=== PATIENT | female | born 1990 | race Caucasian/White ===

== ENCOUNTER 2018-09-04 03:54 | Emergency (ER) | payer SELFPAY ==
[2018-09-04] MEDS ORDERED: NS(*) 0.9% 1000 ML BAG 1,000 ML IV ONE (03:58)
--- NOTE | 2018-09-04 03:58 | ER Report ---
History and Physical Time Seen By MD: 03:57 HPI/ROS CHIEF COMPLAINT: Gallbladder attack HISTORY OF PRESENT ILLNESS: 27-year-old female with a known history of gallstones diagnosed 4-5 months ago by ultrasound, has no insurance was unable to have a lap scopic, cholecystectomy. Tonight she notes sudden onset of severe pain and right upper quadrant radiating to her back. She has nausea and vomiting. He notes no fever or chills. REVIEW OF SYSTEMS: Respiratory: No cough, no dyspnea. Cardiovascular: No chest pain, no palpitations. Gastrointestinal: As above Musculoskeletal: No back pain. Allergies: Coded Allergies: No Known Drug Allergies (Unverified , 09/04/18) Home Meds Active Scripts Promethazine Hcl (PROMETHAZINE HCL) 25 Mg Tablet, 25 MG PO Q4H PRN for NAUSEA/VOMITING, #12 TAB Prov:DANNI MADISON DO 09/04/18 Hydrocodone Bit/Acetaminophen (HYDROCODON-ACETAMINOPHEN 5-325) 1 Each Tablet, 1 EACH PO Q4-6H PRN for PAIN, #12 TAKE ONE TABLET BY MOUTH EVERY 4-6 HOURS NEEDED FOR PAIN Prov:DANNI MADISON DO 09/04/18 Reported Medications Multivitamin With Minerals (MULTIPLE VITAMIN) 1 Each Tablet, 1 EACH PO DAILY, TAB 09/04/18 Vit B Comp/C/Fa/Iron/Vit E (VITAMIN B COMPLEX TABLET) 1 Each Tablet, 2 EACH PO DAILY 09/04/18 Past Medical/Surgical History Gallstones Reviewed Nurses Notes: Yes Old Medical Records Reviewed: Yes Constitutional Vital Sign - Last 24 Hours 09/04/18 09/04/18 09/04/18 09/04/18 04:02 04:04 04:15 04:30 Temp 98.7 Pulse 98 94 91 Resp 22 B/P (MAP) 111/98 (102) 111/98 98/68 (78) Pulse Ox 97 95 90 O2 Delivery Room Air 09/04/18 09/04/18 09/04/18 04:45 05:00 05:15 Pulse 101 81 84 B/P (MAP) 94/72 (79) Pulse Ox 96 95 92 Physical Exam General Appearance: The patient is alert, has no immediate need for airway protection and no current signs of toxicity. Moderate distress, vital signs stable, afebrile, pulse ox normal Eyes: Pupils equal and round no injection. Anicteric sclera Respiratory: Chest is non tender, lungs are clear to auscultation. Cardiac: regular rate and rhythm Gastrointestinal: Abdomen is soft, moderate right upper quadrant tenderness, positive Marie sign no masses, bowel sounds normal. Musculoskeletal: Neck: Neck is supple and non tender. Extremities have full range of motion and are non tender. Skin: No rashes or lesions. DIFFERENTIAL DIAGNOSIS: After history and physical exam differential diagnosis was considered for abdominal pain including but not limited to appendicitis, cholecystitis, gastritis and urinary tract infection. Medical Decision Making Data Points Result Diagram: 09/04/18 0415 09/04/18 0415 Laboratory Hematology Test 09/04/18 04:00 09/04/18 04:15 Urine Color Yellow Urine Clarity Cloudy Urine pH 6.0 pH (4.8-9.5) Urine Specific Start 1.029 Urine Protein Negative mg/dL (NEGATIVE) Urine Glucose (UA) Negative mg/dL (NEGATIVE) Urine Ketones Trace mg/dL (NEGATIVE) Urine Blood Moderate (NEGATIVE) Urine Nitrite Negative (NEGATIVE) Urine Bilirubin Negative (NEGATIVE) Urine Urobilinogen 0.2 mg/dL (0.2-1.9) Urine Leukocyte Esterase Moderate (NEGATIVE) Urine RBC 27 /HPF (0-2/HPF) Urine WBC 12 /HPF (0-5/HPF) Urine Squamous Epithelial Cells Many /LPF (</=FEW) Urine Transitional Epithelial Cells Few /LPF (NONE-FEW) Urine Bacteria Few /HPF (NONE-FEW) Urine Hyaline Casts Few /LPF (NONE-FEW) Urine Mucus Few /HPF (NONE-FEW) Urine HCG, Qualitative Negative (NEGATIVE) Red Blood Count 4.77 M/uL (4.17-5.56) Mean Corpuscular Volume 91.0 fL (80.0-96.0) Mean Corpuscular Hemoglobin 31.3 pg (26.0-33.0) Mean Corpuscular Hemoglobin Concent 34.4 g/dL (32.0-36.0) Red Cell Distribution Width 13.0 % (11.5-14.5) Mean Platelet Volume 8.9 fL (7.2-11.1) Neutrophils (%) (Auto) 65.1 % (39.4-72.5) Lymphocytes (%) (Auto) 27.0 % (17.6-49.6) Monocytes (%) (Auto) 6.4 % (4.1-12.4) Eosinophils (%) (Auto) 0.9 % (0.4-6.7) Basophils (%) (Auto) 0.6 % (0.3-1.4) Nucleated RBC Relative Count (auto) 0.0 /100WBC Neutrophils # (Auto) 8.1 K/uL (2.0-7.4) Lymphocytes # (Auto) 3.4 K/uL (1.3-3.6) Monocytes # (Auto) 0.8 K/uL (0.3-1.0) Eosinophils # (Auto) 0.1 K/uL (0.0-0.5) Basophils # (Auto) 0.1 K/uL (0.0-0.1) Nucleated RBC Absolute Count (auto) 0.00 K/uL Sodium Level 134 mmol/L (137-145) Potassium Level 4.4 mmol/L (3.5-5.0) Chloride Level 103 mmol/L (98-107) Carbon Dioxide Level 23 mmol/L (22-31) Blood Urea Nitrogen 15 mg/dl (7-18) Creatinine 0.50 mg/dl (0.52-1.04) Glomerular Filtration Rate Calc > 60.0 Random Glucose 95 mg/dl (75-110) Calcium Level 9.2 mg/dl (8.4-10.2) Total Bilirubin 0.2 mg/dl (0.2-1.3) Aspartate Amino Transf (AST/SGOT) 46 U/L (0-35) Alanine Aminotransferase (ALT/SGPT) 72 U/L (0-56) Alkaline Phosphatase 70 U/L (0-126) Total Protein 7.4 g/dl (6.3-8.2) Albumin 4.2 g/dl (3.5-5.0) Amylase Level 110 U/L (0-110) Lipase 153 U/L (23-300) Chemistry Test 09/04/18 04:00 09/04/18 04:15 Urine Color Yellow Urine Clarity Cloudy Urine pH 6.0 pH (4.8-9.5) Urine Specific Start 1.029 Urine Protein Negative mg/dL (NEGATIVE) Urine Glucose (UA) Negative mg/dL (NEGATIVE) Urine Ketones Trace mg/dL (NEGATIVE) Urine Blood Moderate (NEGATIVE) Urine Nitrite Negative (NEGATIVE) Urine Bilirubin Negative (NEGATIVE) Urine Urobilinogen 0.2 mg/dL (0.2-1.9) Urine Leukocyte Esterase Moderate (NEGATIVE) Urine RBC 27 /HPF (0-2/HPF) Urine WBC 12 /HPF (0-5/HPF) Urine Squamous Epithelial Cells Many /LPF (</=FEW) Urine Transitional Epithelial Cells Few /LPF (NONE-FEW) Urine Bacteria Few /HPF (NONE-FEW) Urine Hyaline Casts Few /LPF (NONE-FEW) Urine Mucus Few /HPF (NONE-FEW) Urine HCG, Qualitative Negative (NEGATIVE) White Blood Count 12.5 k/uL (4.5-11.0) Red Blood Count 4.77 M/uL (4.17-5.56) Hemoglobin 14.9 g/dL (12.0-16.0) Hematocrit 43.4 % (34.0-47.0) Mean Corpuscular Volume 91.0 fL (80.0-96.0) Mean Corpuscular Hemoglobin 31.3 pg (26.0-33.0) Mean Corpuscular Hemoglobin Concent 34.4 g/dL (32.0-36.0) Red Cell Distribution Width 13.0 % (11.5-14.5) Platelet Count 272 K/uL (150-450) Mean Platelet Volume 8.9 fL (7.2-11.1) Neutrophils (%) (Auto) 65.1 % (39.4-72.5) Lymphocytes (%) (Auto) 27.0 % (17.6-49.6) Monocytes (%) (Auto) 6.4 % (4.1-12.4) Eosinophils (%) (Auto) 0.9 % (0.4-6.7) Basophils (%) (Auto) 0.6 % (0.3-1.4) Nucleated RBC Relative Count (auto) 0.0 /100WBC Neutrophils # (Auto) 8.1 K/uL (2.0-7.4) Lymphocytes # (Auto) 3.4 K/uL (1.3-3.6) Monocytes # (Auto) 0.8 K/uL (0.3-1.0) Eosinophils # (Auto) 0.1 K/uL (0.0-0.5) Basophils # (Auto) 0.1 K/uL (0.0-0.1) Nucleated RBC Absolute Count (auto) 0.00 K/uL Glomerular Filtration Rate Calc > 60.0 Calcium Level 9.2 mg/dl (8.4-10.2) Total Bilirubin 0.2 mg/dl (0.2-1.3) Aspartate Amino Transf (AST/SGOT) 46 U/L (0-35) Alanine Aminotransferase (ALT/SGPT) 72 U/L (0-56) Alkaline Phosphatase 70 U/L (0-126) Total Protein 7.4 g/dl (6.3-8.2) Albumin 4.2 g/dl (3.5-5.0) Amylase Level 110 U/L (0-110) Lipase 153 U/L (23-300) Urinalysis Test 09/04/18 04:00 Urine Color Yellow Urine Clarity Cloudy Urine pH 6.0 pH (4.8-9.5) Urine Specific Start 1.029 Urine Protein Negative mg/dL (NEGATIVE) Urine Glucose (UA) Negative mg/dL (NEGATIVE) Urine Ketones Trace mg/dL (NEGATIVE) Urine Blood Moderate (NEGATIVE) Urine Nitrite Negative (NEGATIVE) Urine Bilirubin Negative (NEGATIVE) Urine Urobilinogen 0.2 mg/dL (0.2-1.9) Urine Leukocyte Esterase Moderate (NEGATIVE) Urine RBC 27 /HPF (0-2/HPF) Urine WBC 12 /HPF (0-5/HPF) Urine Squamous Epithelial Cells Many /LPF (</=FEW) Urine Transitional Epithelial Cells Few /LPF (NONE-FEW) Urine Bacteria Few /HPF (NONE-FEW) Urine Hyaline Casts Few /LPF (NONE-FEW) Urine Mucus Few /HPF (NONE-FEW) Urine HCG, Qualitative Negative (NEGATIVE) ED Course/Re-evaluation Clinical Indication for ER IV: Hydration, IV Access ED Course Patient was admitted to an examination room. H&P was done. The differential diagnoses was considered. Patient with acute gallbladder attack likely with a known history of gallstones. She unfortunately doesn't have insurance and is unable to give a cholecystectomy performed by surgeons in [place] or [place]. Patient's not been seen by general surgery here. Patient was treated with IV fluid hydration, Zofran, Toradol and Dilaudid. She feels much better. Her lavatory studies are mostly unremarkable except for mildly elevated LFTs. I see no indication for further diagnostic studies. I did talk about repeating ultrasound or CAT scan to assess her status. Patient was reluctant to do that without insurance. Patient be discharged home, advised clear liquid diet and avoidance of fatty or greasy food. She is given prescription for Lortab and Phenergan. She is advised to follow-up with general surgery in town here for further treatment. Decision to Disposition Date: September 04, 2018 Decision to Disposition Time: 05:24 Depart Departure Latest Vital Signs Vital Signs Date Time Temp Pulse Resp B/P (MAP) Pulse Ox O2 Delivery O2 Flow Rate FiO2 09/04/18 05:15 84 92 09/04/18 05:00 94/72 (79) 09/04/18 04:04 98.7 22 Room Air Impression: Primary Impression: RUQ abdominal pain Additional Impression: Hx of gallstones Condition: Improved Disposition: HOME OR SELF-CARE Referrals: HERNAN WELLER JOHN A MD New Scripts Promethazine Hcl (PROMETHAZINE HCL) 25 Mg Tablet 25 MG PO Q4H PRN for NAUSEA/VOMITING, #12 TAB Prov: DANNI MADISON DO 09/04/18 Hydrocodone Bit/Acetaminophen (HYDROCODON-ACETAMINOPHEN 5-325) 1 Each Tablet 1 EACH PO Q4-6H PRN for PAIN, #12 TAKE ONE TABLET BY MOUTH EVERY 4-6 HOURS NEEDED FOR PAIN Prov: DANNI MADISON DO 09/04/18 Patient Instructions: Abdominal Pain (ED), Clear Liquid Diet (ED) Additional Instructions: Follow clear liquid diet for 24-48 hours Avoid fatty food or greasy food to prevent future gallbladder attacks Follow-up with general surgery Problem Qualifiers DANNI MADISON DO September 04, 2018 03:58
[2018-09-04] MEDS ORDERED: MULT-1335 PO (04:04)
[2018-09-04] MEDS ORDERED: VIT-22 PO (04:04)
[2018-09-04] MEDS ORDERED: HYDROMORPHONE HCL 1 MG/ML SYRINGE IVP ONE (04:05)
[2018-09-04] MEDS ORDERED: ONDANSETRON 4 MG/2 ML VIAL IVP ONE (04:05)
[2018-09-04] MEDS ORDERED: PROMETHAZINE 25 MG/ML 1 ML AMP IVP ONE (04:05)
[2018-09-04 04:21] LABS: PLATELET COUNT, AUTOMATED 272 K/uL (150-450)
[2018-09-04] MEDS ORDERED: KETOROLAC 30 MG/ML VIAL IVP ONE (04:50)
[2018-09-04 05:00] VITALS: BP 94/72
[2018-09-04] MEDS ORDERED: ACET/HYDROC 5/325MG TH ER ONLY 2 TAB/BOTTLE PO ONE (05:25)
[2018-09-04] MEDS ORDERED: PROMETHAZINE HCL 25 MG TAB TH 2 TAB/BOTTLE PO ONE (05:25)
[2018-09-04] MEDS ORDERED: PROM-110 PO (05:26)
[2018-09-04] MEDS ORDERED: LOR5/325 PO (05:26)
== END 2018-09-04 05:40 | disposition home or self-care (01) ==
LOC: ER 03:58
DX: R10.11 Right upper quadrant pain (principal)
CPT/HCPCS: 81001; 81025; 82150; 83690; 85025; 96361; 96374; 96375; 99284; J1170; J1885; J2405; J2550; J7030; 82040; 82247; 82310; 82374; 82435; 82565; 82947; 84075; 84132; 84155; 84295; 84450; 84460; 84520

== ENCOUNTER 2018-10-07 01:31 | Observation (INO) | payer SELFPAY ==
[2018-10-07] VITALS (10 sets, daily range): BP systolic 98–127; BP diastolic 62–85
[~2018-10-07] VITALS: Ht 152.4 cm; Wt 68.5 kg
[~2018-10-07 01:31] MED LIST: LOR5/325 PO; MULT-1335 PO; PROM-110 PO; VIT-22 PO
[2018-10-07] MEDS ORDERED: INDOCYANINE GREEN 25 MG VIAL IVP ONE (07:30)
[2018-10-07] MEDS: NORMOSOL R SOLN(*) 1000 ML BAG 1,000 ML IV PRN ×2 (08:49→12:45)
[2018-10-07] MEDS ORDERED: ONDANSETRON 4 MG/2 ML VIAL ONE ×2 (09:08→09:09)
[2018-10-07] MEDS ORDERED: LIDOCAINE MPF 1% 5 ML VIAL ONE (09:09)
[2018-10-07] MEDS ORDERED: PROPOFOL EMUL(*) 10MG/ML 20 ML 20 ML ONE (09:09)
[2018-10-07] MEDS ORDERED: SUGAMMADEX SOD 200 MG/2 ML SDV ONE ×2 (09:09→11:49)
[2018-10-07] MEDS ORDERED: DEXAMETHASONE SOD 4 MG/ML VIAL ONE (09:09)
[2018-10-07] MEDS ORDERED: fentaNYL CITR 250 MCG/5 ML AMP ONE (09:10)
[2018-10-07] MEDS ORDERED: ROCURONIUM BR 10 MG/ML 5 ML SY 5 ML ONE (09:10)
[2018-10-07] MEDS ORDERED: KETAMINE HCL 200 MG/20 ML MDV ONE (09:14)
[2018-10-07] MEDS ORDERED: KETAMINE HCL-NS 50 MG/5 ML SYR ONE (09:14)
[2018-10-07] MEDS ORDERED: FAMOTIDINE 20 MG TAB PO ONE (09:45)
[2018-10-07] MEDS ORDERED: ceFAZolin(*) 2GM/D5W 50ML 50 ML IVPB ONE (09:45)
[2018-10-07] MEDS ORDERED: LIDOCAINE/SOD BICARB 8.4% SYR ID ONE (09:45)
[2018-10-07] MEDS ORDERED: MIDAZOLAM 2 MG/2 ML VIAL IVP PRN (09:45)
[2018-10-07] MEDS ORDERED: BUPIVACAINE/EPI 0.5% 50ML VIAL INFIL ONE (10:36)
[2018-10-07] MEDS ORDERED: fentaNYL CITR 100 MCG/2 ML AMP ONE ×2 (12:26→13:30)
--- NOTE | 2018-10-07 12:27 | Post Operative Progress Note ---
Post Operative Progress Note Date: Oct 07, 2018 Time: 12:20 Surgeon: dr. randall castro #[id number] Supervisor Screen Making: none Anesthesia: gen, local dr. shetty Pre-Op Diagnosis: acute and chronic cholecystitis Post-Op Diagnosis: same Procedure(s): robotic cholecystectomy Specimen Removed:(May be N/A): gallbladder Complications: none Estimated Blood Loss: minimal Date OP Note Dictated: Oct 07, 2018 Time OP Note Dictated: 12:21 HERNAN CASTRO Oct 07, 2018 12:27
--- NOTE | 2018-10-07 12:55 | OPERATIVE REPORT 1 ---
EVENT DATE: October 07, 2018 SURGEON: Dakota Griffin MD ANESTHESIOLOGIST: Colby Bearden MD ANESTHESIA: General and local. DRY PRESS OPERATOR HELPER: None. PREOPERATIVE DIAGNOSIS Acute and chronic cholecystitis. POSTOPERATIVE DIAGNOSIS Acute and chronic cholecystitis. PROCEDURE PERFORMED Robotic cholecystectomy. FLUIDS IV crystalloids. ESTIMATED BLOOD LOSS Minimal. SPECIMENS Gallbladder. COMPLICATIONS None. INDICATIONS This is a 27-year old female with several months' history of right upper quadrant pain. On physical exam, patient was stable. Her abdomen was soft. Imaging in the past has shown cholelithiasis. Patient presented earlier this morning to the emergency department with acute cholecystitis. Risks and benefits of the procedure were explained and consent was signed. PROCEDURE The patient was taken to the operating room and placed in the supine position. General anesthesia was administered per the Anesthesia team. Patient was prepped and draped in normal sterile fashion. Local analgesia was injected into the dermis above the umbilicus and a small incision was made. The umbilical stump was grasped and elevated. Veress needle was inserted. Pneumoperitoneum was achieved. Veress needle was removed. The 8 mm port was advanced. I confirmed we were in the appropriate space and I then advanced the 12 mm port through the supraumbilical incision. After injecting local analgesia and under direct vision, an 8 mm right sided port and two 8 mm left sided ports were placed. I inspected the abdomen. There was no injury upon entry. The robot was docked. The fungus was grasped and retracted superiorly and laterally. The infundibulum was grasped and retracted. Electrocautery was used to free the cystic duct, the cystic artery and surrounding tissue. Both structures were seen going directly to the gallbladder. Three clips were placed on the cystic artery and divided sharply between the distal two clips. Three clips were placed on the cystic duct and it was divided sharply between the distal two clips. The gallbladder was taken off the liver bed with electrocautery. It was removed with Endo Catch bag through the large port site. The right upper quadrant was inspected. Hemostasis was assured. Clips were confirmed to be in place. There was no spillage from the gallbladder. The robot was undocked. The Endo Catch bag with the gallbladder was removed. Fascia closure device with 0 Vicryl stitch was used to close the fascia of the large port site. Other ports were removed under direct vision. Hemostasis was assured. Final port was removed after pneumoperitoneum was released. All skin incisions were closed with 4-0 Monocryl subcuticular stitches. More local analgesia was injected. Appropriate dressings were applied. The patient tolerated the procedure well and there were no complications. JENN
[2018-10-07] MEDS ORDERED: ePHEDrine 25 MG/5 ML DISP.SYR IVP ONE (12:57)
[2018-10-07] MEDS ORDERED: ACETAMINOPHEN(*)1000 MG/100 ML 100 ML IVPB ONE (14:15)
[2018-10-07] MEDS ORDERED: KETOROLAC 30 MG/ML VIAL ONE (14:16)
[2018-10-07] MEDS ORDERED: HYDROmorphone HCL 2 MG/ML SDV ONE (15:34)
[2018-10-07] MEDS ORDERED: ONDANSETRON 4 MG/2 ML VIAL IVP PRN (15:50)
[2018-10-07] MEDS: HYDROmorphone HCL 2 MG/ML SDV IVP PRN (15:55)
[2018-10-07] MEDS: APAP/HYDROCODONE 325/7.5 TAB PO PRN ×2 (17:31→23:09)
[2018-10-07] MEDS: NS(*) 0.9% 1000 ML BAG 1,000 ML IV SCH (20:02)
[2018-10-08 03:24] VITALS: BP 105/55
[2018-10-08] MEDS: APAP/HYDROCODONE 325/7.5 TAB PO PRN ×2 (03:35→12:31)
[2018-10-08] MEDS: NS(*) 0.9% 1000 ML BAG 1,000 ML IV SCH (04:30)
[2018-10-08] MEDS ORDERED: TRAM-420 PO (06:36)
--- NOTE | 2018-10-08 07:43 | General Surgery Progress Note ---
Subjective Progress Notes Subjective no acute events Physical Exam Vital Signs Date Time Temp Pulse Resp B/P (MAP) Pulse Ox O2 Delivery O2 Flow Rate FiO2 10/08/18 03:44 93 10/08/18 03:24 98.5 16 105/55 (72) Room Air 10/07/18 18:42 65 10/07/18 17:30 1.0 Intake and Output 10/08/18 07:01 Intake Total 6210 ml Balance 6210 ml Intake Oral 360 ml IV Total 3950 ml Other 1900 ml # Voids 1 General Appearance: No Acute Distress Cardiovascular: Other (reg rate) GI: Other (abd soft) Assessment and Plan Problems: (1) Hx of gallstones Status: Acute Assessment & Plan: doing fine. adat. ambulate. home today. Exam Sepsis Risk: No Definite Risk HERNAN WELLER Oct 08, 2018 07:43
[2018-10-08] MEDS: HYDROmorphone HCL 2 MG/ML SDV IVP PRN (08:33)
[2018-10-08] MEDS ORDERED: ENOXAPARIN 40 MG/0.4ML SYR SC SCH (09:00)
[2018-10-08 09:26] VITALS: BP 101/62
[2018-10-08 11:58] VITALS: Ht 152.4 cm; Wt 68.5 kg
[2018-10-08 12:26] VITALS: BP 105/68
--- NOTE | 2018-10-08 13:42 | Hospitalist Depart ---
Discharge Summary Reason for Hosp/Final Diag: (1) Hx of gallstones Status: Acute Hospital Course & Plan: doing fine. adat. ambulate. home today. Departure Weight (Pounds): 151 Condition: Improved Discharge: Home Discharge Instructions Home Meds Active Scripts Tramadol Hcl (TRAMADOL HCL) 50 Mg Tablet, 50 MG PO Q6H PRN for PAIN, #20 TAB Prov:HERNAN CASTRO 10/08/18 Reported Medications Multivitamin With Minerals (MULTIPLE VITAMIN) 1 Each Tablet, 1 EACH PO DAILY, TAB 09/04/18 Vit B Comp/C/Fa/Iron/Vit E (VITAMIN B COMPLEX TABLET) 1 Each Tablet, 2 EACH PO DAILY 09/04/18 Discontinued Scripts Hydrocodone Bit/Acetaminophen (HYDROCODON-ACETAMINOPHEN 5-325) 1 Each Tablet, 1 EACH PO Q4-6H PRN for PAIN, #12 TAKE ONE TABLET BY MOUTH EVERY 4-6 HOURS NEEDED FOR PAIN Prov:DANNI MADISON DO 09/04/18 Diet: Regular Activity: No Heavy Lifting Special Instructions: no lifting more than 15 lbs for 3 wks. ok to shower. take stool softener while taking pain meds. f/u dr. randall castro in 2 wks ([phone]). Venous Thromboembolism Antithrombotics Is Pt On Any Antithrombotics?: Yes HERNAN CASTRO Oct 08, 2018 13:42
== END 2018-10-08 15:40 | disposition home or self-care (01) ==
LOC: OR 01:31 → INTOOBSV 17:16 → MED 17:16
PROVIDERS: ADMIT Surgery; ATTEND Surgery
DX: K81.0 Acute cholecystitis (principal)
CPT/HCPCS: 47562; 84703; 88304; 96372; G0378; J0131; J1100; J1170; J1650; J1885; J2001; J2250; J2405; J2704; J3010; J3490; J7030; S2900

== ENCOUNTER 2018-10-07 04:57 | Emergency (ER) | payer SELFPAY ==
--- NOTE | 2018-10-07 05:14 | ER Report ---
History and Physical Time Seen By MD: 05:12 Hx. of Stated Complaint: PT SCHEDULED TO HAVE GALLBLADDER REMOVED AT 09:00 TODAY. PT REPORTS INTENSE RUQ PAIN AND IS UNABLE TO CONTROL PAIN AT HOME. HPI/ROS CHIEF COMPLAINT: gallbladder attack pain HISTORY OF PRESENT ILLNESS: This is a 27 year old female. Has been having right upper and epigastric area pain, scheduled to have her gallbladder removed today, and was to come in about 0900 today. Tonight with severe pain and nausea that was not relieving, so came to the ER to get some help. She is in tears because of the pain. No shortness of breath or chest pain. Pain does radiate to right upper back. No trouble with urination or bowels. No fevers. Allergies: Coded Allergies: No Known Drug Allergies (Unverified , 10/07/18) Home Meds Active Scripts Tramadol Hcl (TRAMADOL HCL) 50 Mg Tablet, 50 MG PO Q6H PRN for PAIN, #20 TAB Prov:HERNAN GRIFFIN 10/08/18 Reported Medications Multivitamin With Minerals (MULTIPLE VITAMIN) 1 Each Tablet, 1 EACH PO DAILY, TAB 09/04/18 Vit B Comp/C/Fa/Iron/Vit E (VITAMIN B COMPLEX TABLET) 1 Each Tablet, 2 EACH PO DAILY 09/04/18 Discontinued Scripts Hydrocodone Bit/Acetaminophen (HYDROCODON-ACETAMINOPHEN 5-325) 1 Each Tablet, 1 EACH PO Q4-6H PRN for PAIN, #12 TAKE ONE TABLET BY MOUTH EVERY 4-6 HOURS NEEDED FOR PAIN Prov:DANNI MADISON DO 09/04/18 Reviewed Nurses Notes: Yes Hx Smoking: No Hx Substance Use Disorder: No Hx Alcohol Use: Yes Constitutional Vital Sign - Last 24 Hours 10/07/18 10/07/18 10/07/18 10/07/18 05:02 05:02 05:12 05:27 Temp 97.9 Pulse 75 72 81 Resp 22 B/P (MAP) 109/74 109/74 (86) Pulse Ox 97 98 91 O2 Delivery Room Air 10/07/18 10/07/18 10/07/18 10/07/18 05:30 05:32 05:35 05:55 Pulse 70 66 B/P (MAP) 97/67 (77) Pulse Ox 90 97 O2 Flow Rate 1.0 10/07/18 10/07/18 10/07/1810/07/19 06:00 06:15 06:30 06:35 Pulse 78 69 Resp 20 17 B/P (MAP) 95/61 (72) 93/60 (71) Pulse Ox 99 99 10/07/18 10/07/18 10/07/18 10/07/18 06:55 07:00 07:05 07:25 Pulse 66 95 81 Resp 12 14 13 B/P (MAP) 83/63 (70) Pulse Ox 99 100 99 10/07/18 10/07/18 10/07/18 10/07/18 07:30 07:45 08:00 08:05 Pulse 63 63 Resp 14 13 B/P (MAP) 93/68 (76) 101/64 (76) Pulse Ox 99 99 10/07/18 08:25 Pulse 67 Resp 26 Pulse Ox 97 Physical Exam General Appearance: The patient is alert. Acute distress due to pain. Eyes: Pupils are equal, round. No pallor, injection or icterus. ENT: Mucous membranes are moist. Neck: Supple and non tender. Respiratory: Lungs are clear to auscultation. Cardiovascular: Initially tachycardic, but now regular rate and rhythm after pain management. No murmurs, gallops or rubs. Gastrointestinal: Abdomen is tender in right upper quadrant and the epigastric area. Nondistended. Guarding, but no rebound. Normal active bowel sounds. Has some tenderness right flank. Neurological: Alert and oriented x3. Skin: Warm and dry. Musculoskeletal: Extremities are nontender. DIFFERENTIAL DIAGNOSIS: After history and physical exam, differential diagnosis was considered for right upper quadrant pain, suspect gallbladder as cause, but will look at labs for other causes and complications. Medical Decision Making Data Points Result Diagram: 10/07/18 0515 10/07/18 0515 Laboratory Hematology Test 10/07/18 05:15 Red Blood Count 4.61 M/uL (4.17-5.56) Mean Corpuscular Volume 90.5 fL (80.0-96.0) Mean Corpuscular Hemoglobin 32.2 pg (26.0-33.0) Mean Corpuscular Hemoglobin Concent 35.5 g/dL (32.0-36.0) Red Cell Distribution Width 13.3 % (11.5-14.5) Mean Platelet Volume 9.1 fL (7.2-11.1) Neutrophils (%) (Auto) 59.2 % (39.4-72.5) Lymphocytes (%) (Auto) 33.7 % (17.6-49.6) Monocytes (%) (Auto) 5.7 % (4.1-12.4) Eosinophils (%) (Auto) 1.3 % (0.4-6.7) Basophils (%) (Auto) 0.1 % (0.3-1.4) Nucleated RBC Relative Count (auto) 0.0 /100WBC Neutrophils # (Auto) 5.0 K/uL (2.0-7.4) Lymphocytes # (Auto) 2.8 K/uL (1.3-3.6) Monocytes # (Auto) 0.5 K/uL (0.3-1.0) Eosinophils # (Auto) 0.1 K/uL (0.0-0.5) Basophils # (Auto) 0.0 K/uL (0.0-0.1) Nucleated RBC Absolute Count (auto) 0.00 K/uL Sodium Level 137 mmol/L (137-145) Potassium Level 3.2 mmol/L (3.5-5.0) Chloride Level 105 mmol/L (98-107) Carbon Dioxide Level 21 mmol/L (22-31) Blood Urea Nitrogen 8 mg/dl (7-18) Creatinine 0.50 mg/dl (0.52-1.04) Glomerular Filtration Rate Calc > 60.0 Random Glucose 95 mg/dl (75-110) Calcium Level 9.5 mg/dl (8.4-10.2) Total Bilirubin 0.4 mg/dl (0.2-1.3) Aspartate Amino Transf (AST/SGOT) 22 U/L (0-35) Alanine Aminotransferase (ALT/SGPT) 37 U/L (0-56) Alkaline Phosphatase 85 U/L (0-126) Total Protein 7.9 g/dl (6.3-8.2) Albumin 4.6 g/dl (3.5-5.0) Amylase Level 89 U/L (0-110) Lipase 167 U/L (23-300) Chemistry Test 10/07/18 05:15 White Blood Count 8.4 k/uL (4.5-11.0) Red Blood Count 4.61 M/uL (4.17-5.56) Hemoglobin 14.8 g/dL (12.0-16.0) Hematocrit 41.7 % (34.0-47.0) Mean Corpuscular Volume 90.5 fL (80.0-96.0) Mean Corpuscular Hemoglobin 32.2 pg (26.0-33.0) Mean Corpuscular Hemoglobin Concent 35.5 g/dL (32.0-36.0) Red Cell Distribution Width 13.3 % (11.5-14.5) Platelet Count 279 K/uL (150-450) Mean Platelet Volume 9.1 fL (7.2-11.1) Neutrophils (%) (Auto) 59.2 % (39.4-72.5) Lymphocytes (%) (Auto) 33.7 % (17.6-49.6) Monocytes (%) (Auto) 5.7 % (4.1-12.4) Eosinophils (%) (Auto) 1.3 % (0.4-6.7) Basophils (%) (Auto) 0.1 % (0.3-1.4) Nucleated RBC Relative Count (auto) 0.0 /100WBC Neutrophils # (Auto) 5.0 K/uL (2.0-7.4) Lymphocytes # (Auto) 2.8 K/uL (1.3-3.6) Monocytes # (Auto) 0.5 K/uL (0.3-1.0) Eosinophils # (Auto) 0.1 K/uL (0.0-0.5) Basophils # (Auto) 0.0 K/uL (0.0-0.1) Nucleated RBC Absolute Count (auto) 0.00 K/uL Glomerular Filtration Rate Calc > 60.0 Calcium Level 9.5 mg/dl (8.4-10.2) Total Bilirubin 0.4 mg/dl (0.2-1.3) Aspartate Amino Transf (AST/SGOT) 22 U/L (0-35) Alanine Aminotransferase (ALT/SGPT) 37 U/L (0-56) Alkaline Phosphatase 85 U/L (0-126) Total Protein 7.9 g/dl (6.3-8.2) Albumin 4.6 g/dl (3.5-5.0) Amylase Level 89 U/L (0-110) Lipase 167 U/L (23-300) ED Course/Re-evaluation Clinical Indication for ER IV: Hydration, IV Access ED Course Patient was given 1mg Dilaudid IV and 4mg Zofran IV prior to my exam because of how much pain she was experiencing with helped significantly. Gave a liter of normal saline. Found potassium to be a little low so gave a 20mEq potassium rider and a second liter of normal saline. Discussed with Dr. Griffin and we will keep her in the ER till pre-op is ready for her this morning. Giving a dose of Zosyn 3.375g IV for pre-op. Decision to Disposition Date: Oct 07, 2018 Decision to Disposition Time: 06:46 Depart Departure Latest Vital Signs Vital Signs Date Time Temp Pulse Resp B/P (MAP) Pulse Ox O2 Delivery O2 Flow Rate FiO2 10/07/18 08:25 67 26 97 10/07/18 08:00 101/64 (76) 10/07/18 05:32 1.0 10/07/18 05:02 97.9 Room Air Impression: Primary Impression: RUQ abdominal pain Condition: Improved Disposition: ADMIT FROM ER TO OR KAVEH PANTOJA MD Oct 07, 2018 05:14
[2018-10-07] MEDS ORDERED: ONDANSETRON 4 MG/2 ML VIAL IVP ONE (05:15)
[2018-10-07] MEDS ORDERED: HYDROMORPHONE HCL 1 MG/ML SYRINGE IVP ONE ×2 (05:15→08:20)
[2018-10-07] MEDS ORDERED: NS(*) 0.9% 1000 ML BAG 1,000 ML IV ONE ×2 (05:15→06:15)
[2018-10-07 05:46] LABS: PLATELET COUNT, AUTOMATED 279 K/uL (150-450)
[2018-10-07] MEDS ORDERED: KCL (*) 20 MEQ/100 ML PREMIX 100 ML IV ONE (06:05)
[2018-10-07] MEDS ORDERED: PIPERACILLIN/TAZO*3.375GM VIAL 3.375 GM in NS(*) 0.9% 100 ML MINI-BAG 100 ML IVPB ONE (06:30)
[2018-10-07 08:00] VITALS: BP 101/64
[2018-10-08] MEDS ORDERED: TRAM-420 PO (06:36)
== END 2018-10-07 08:36 | disposition other institution (70) ==
LOC: ER 05:35 → UNDOADMOB 16:15 → MED 16:15
DX: R10.11 Right upper quadrant pain (principal)
CPT/HCPCS: 82150; 83690; 85025; 96361; 96365; 96366; 96375; 99284; J1170; J2405; J2543; J3480; J7030; 82040; 82247; 82310; 82374; 82435; 82565; 82947; 84075; 84132; 84155; 84295; 84450; 84460; 84520